=== PATIENT | male | born 1945 | race African-American/Black ===

== ENCOUNTER 2020-09-12 10:38 | Emergency (ER) | payer MEDICAID ==
[~2020-09-12] VITALS: Ht 177.8 cm; Wt 82.0 kg
[2020-09-12 11:52] LABS: BASOPHILS % 0.1 % (0.0-2.0); EOSINOPHILS % 0.6 % (0.0-5.0); HEMATOCRIT. 33.7 % (42.0-52.0); HEMOGLOBIN. 10.5 g/dL (14.0-18.0); LYMPHOCYTES % 20.7 % (20.0-50.0); MEAN CORPUSCULAR HEMOGLOBIN 23.7 pg (28.0-32.0); MEAN CORPUSCULAR VOLUME 76.1 fL (80.0-94.0); MEAN PLATELET VOLUME 8.3 fl (7.4-10.4); MONOCYTES % 9.9 % (2.0-8.0); NEUTROPHILS % 68.7 % (40.0-76.0); PLATELET 197 x1000/uL (130-400); RED BLOOD CELL COUNT 4.43 mill/uL (4.7-6.1); RED CELL DISTRIBUTION WIDTH 14.1 % (11.6-14.6)
[2020-09-12 11:58] LABS: CHLORIDE 103 mEq/L (98-107)
[2020-09-12 12:04] LABS: ETHANOL BLOOD < 10 mg/dL
[2020-09-12 12:12] LABS: PROTHROMBIN TIME 10.5 sec (9.6-11.0)
[2020-09-12] MEDS ORDERED: SODIUM CHLORIDE 0.9% 1,000 ML IV ONE ×2 (12:30→14:00)
[2020-09-12] MEDS ORDERED: DEXTROSE 50% WATER 50ML SYRINGE IV ONE (12:30)
[2020-09-12] MEDS ORDERED: INSULIN REGULAR (HUMULIN R) 300UNITS/3ML VIAL IV ONE (12:30)
[2020-09-12] MEDS ORDERED: ALBUTEROL (0.083%) 2.5MG/3ML NEB HHN ONE (14:00)
[2020-09-12] MEDS ORDERED: SODIUM POLYSTYRENE SULFONATE 15 G/60 ML BOT PO ONE (14:00)
[2020-09-12 14:36] LABS: CHLORIDE 109 mEq/L (98-107)
[2020-09-12 15:00] VITALS: BP 160/70
== END 2020-09-12 15:55 | disposition short-term general hospital (02) ==
LOC: ER 10:49 → CANBEDREQ 16:21
DX: G93.49 Other encephalopathy (principal); E86.0 Dehydration; E87.5 Hyperkalemia; F03.90 Unspecified dementia, unspecified severity, without behavioral disturbance, psychotic disturbance, mood disturbance, and anxiety; I10 Essential (primary) hypertension
CPT/HCPCS: 36415; 70450; 71045; 80048; 80053; 80320; 82140; 82962; 84484; 85025; 85610; 87040; 93005; 96361; 96374; 96375; 99291; J1815; J7030; Z7610; A4315; G0480